=== PATIENT | female | born 1935 | race Caucasian/White ===

== ENCOUNTER 2017-02-14 19:32 | Inpatient (IN) | payer OTHER ==
[~2017-02-14] VITALS: Ht 152.4 cm; Wt 105.2 kg
[~2017-02-14 19:32] MED LIST: A/B OTIC15 ML; ADV100/50 IH; ADV250/50; ADV250/50 INH; AMLODIPINE BESY10 M1 PO; AMLODIPINE BESY10 MG PO; ASPIR-LOW81 M1 PO; CEFDINIR300 M1 PO; CIPRO250 MG PO; CLOPIDOGREL75 MG; COLACE100 MG PO; COZ25 PO; COZAAR25 MG PO; DULCOLAX10 MG RC; DUREZOL 5 ML5 ML OP; ELA10 PO; FUROSEMIDE20 MG PO; GLIPIZIDE PO; GLIPIZIDE5 MG PO; GLU5XL PO; GUAFENESIN400 MG PO; IBUPROFEN400 MG PO; IPRATROPIUM BROM3 M2 HHN; KLONOPIN2 M1 PO; LAC PO; LEVOFLOXACIN500 M1 PO; LEXAPRO20 MG PO; LINZESS290 MCG PO; LIPI20 PO; LOPRESSOR50 MG PO; LORAZEPAM0.5 MG PO; LOSARTAN POTASS1 TA6 PO; LOSARTAN POTASS25 M1 PO; LOSARTAN POTASS50 MG PO; MAGNESIUM OXID400 MG PO; MEDDP PO; METOPROLOL SUC100 M2 PO; METOPROLOL SUCC25 M1 PO; METP PO; MONTELUKAST SOD10 M1 PO; NORCO1 TA2 PO; OMEPRAZOLE DR20 M1 PO; PHECLUD PO; PREDNISONE50 MG PO; PROAIR HFA0.09 MG/A1 INH; PROAIR RES117 MCG/Ac IH; PROMETHAZINE V118 M2 PO; SENOKOT NATURA8.6 M1 PO; SIMVASTATIN40 M1 PO; SINGULAIR10 MG PO; TRE400 PO; VERAPAMIL HCL180 M1 PO; ZOL100 PO; ZOLOFT50 MG PO; [UNRECOGNIZED DRUG - CODE] PO; [UNRECOGNIZED DRUG - OTHER]; [UNRECOGNIZED DRUG - OTHER]; [UNRECOGNIZED DRUG - OTHER] PO; nebulizer
[2017-02-14] MEDS ORDERED: GOOD SENSE OMEP20 MG PO (20:17)
[2017-02-14] MEDS ORDERED: TOPROL XL25 MG PO (20:18)
[2017-02-14] MEDS ORDERED: ASPIR 8181 MG PO (20:18)
[2017-02-14] MEDS ORDERED: CLONAZEPAM1 MG PO (20:18)
[2017-02-14] MEDS ORDERED: FML OU (20:20)
[2017-02-14] MEDS ORDERED: SYSTANE GEL EYE10 ML OP (20:20)
[2017-02-14] MEDS ORDERED: MONTELUKAST SOD10 M1 PO (20:20)
[2017-02-14] MEDS ORDERED: REFRESH OPTIVE10 ML OP (20:21)
[2017-02-14 20:37] LABS: BASOPHIL % 0.4 % (0-2); PLATELET COUNT 269 x10^3mcL (130-400)
[2017-02-14 20:38] LABS: RED CELL DISTRIBUTION WIDTH 16.4 % (11.5-14.5)
[2017-02-14 20:46] LABS: CALCIUM 8.3 mg/dL (8.5-10.1); CARBON DIOXIDE 26.7 mmol/L (21-32); CHLORIDE SERUM 104 mmol/L (98-107); CREATININE SERUM 0.9 mg/dL (0.6-1.0); GLUCOSE SERUM 103 mg/dL (74-106); SODIUM SERUM 138 mmol/L (136-145)
[2017-02-14 20:51] LABS: ALKALINE PHOSPHATASE 104 U/L (46-116); ALT/SGPT 84 U/L (14-59); AST/SGOT 66 U/L (15-37)
[2017-02-14 20:52] LABS: ALBUMIN 2.8 g/dL (3.4-5.0)
[2017-02-14 21:16] LABS: CK-MB < 0.5 ng/mL (0-3.6); CREATINE KINASE 41 U/L (26-192)
[2017-02-14 21:31] LABS: CHOLESTEROL/HDL RATIO 3.6; MAGNESIUM 1.9 mg/dL (1.8-2.4)
[2017-02-14 21:46] LABS: T3 TOTAL 0.96 ng/mL
[2017-02-14 22:05] LABS: FREE T4 0.88 ng/dL (0.76-1.46); FREE THYROXINE INDEX 2.6 ug/dL (1.4-4.5); T4(THYROXINE) 7.7 ug/dL (4.7-13.3)
[2017-02-14 22:35] VITALS: BP 135/53
[2017-02-15] VITALS (7 sets, daily range): BP systolic 147–176; BP diastolic 72–84
[2017-02-15 01:56] LABS: microscopic required? NO
[2017-02-15 02:35] LABS: UA SPECIFIC GRAVITY 1.015 (1.005-1.035); urine erythrocyte NEGATIVE (NEGATIVE)
[2017-02-15 08:07] LABS: CALCIUM 8.1 mg/dL (8.5-10.1); CARBON DIOXIDE 29.6 mmol/L (21-32); CHLORIDE SERUM 104 mmol/L (98-107); CREATININE SERUM 0.9 mg/dL (0.6-1.0); GLUCOSE SERUM 96 mg/dL (74-106); MAGNESIUM 1.9 mg/dL (1.8-2.4); PHOSPHOROUS 3.5 mg/dL (2.5-4.9); POTASSIUM SERUM 3.9 mmol/L (3.5-5.1); SODIUM SERUM 138 mmol/L (136-145)
[2017-02-16 06:17] VITALS: BP 161/68
[2017-02-16 06:19] LABS: BASOPHIL % 0.3 % (0-2); PLATELET COUNT 262 x10^3mcL (130-400)
[2017-02-16 06:31] LABS: CALCIUM 8.5 mg/dL (8.5-10.1); CARBON DIOXIDE 28.5 mmol/L (21-32); CHLORIDE SERUM 102 mmol/L (98-107); CREATININE SERUM 0.8 mg/dL (0.6-1.0); GLUCOSE SERUM 104 mg/dL (74-106); MAGNESIUM 1.9 mg/dL (1.8-2.4); PHOSPHOROUS 3.7 mg/dL (2.5-4.9); POTASSIUM SERUM 3.8 mmol/L (3.5-5.1); SODIUM SERUM 138 mmol/L (136-145)
[2017-02-16 06:45] LABS: RED CELL DISTRIBUTION WIDTH 16.1 % (11.5-14.5)
[2017-02-16 08:05] VITALS: BP 140/94
[2017-02-16 09:39] VITALS: BP 127/78
[2017-02-16] MEDS ORDERED: BACLOFEN20 MG PO (14:19)
[2017-02-16] MEDS ORDERED: ATORVASTATIN CA40 M1 PO (14:21)
[2017-02-16 14:52] VITALS: BP 139/76
[2017-02-16 16:54] VITALS: BP 139/76
[2017-02-16] MEDS ORDERED: ELA25 PO (16:57)
[2017-02-16 18:19] VITALS: BP 126/74
[2017-02-16] MEDS ORDERED: NOR10 PO (18:52)
== END 2017-02-16 19:09 | disposition home or self-care (01) | DRG 304 ==
LOC: ED 19:32 → DU 21:01
PROVIDERS: Emergency Medicine; ADMIT Family Medicine
DX: I16.0 Hypertensive urgency (principal); E43 Unspecified severe protein-calorie malnutrition; E66.2 Morbid (severe) obesity with alveolar hypoventilation; Z68.41 Body mass index [BMI] 40.0-44.9, adult; D68.69 Other thrombophilia; I42.9 Cardiomyopathy, unspecified; G24.5 Blepharospasm; E11.9 Type 2 diabetes mellitus without complications; E02 Subclinical iodine-deficiency hypothyroidism; D64.9 Anemia, unspecified; E78.5 Hyperlipidemia, unspecified; Z79.82 Long term (current) use of aspirin; Z85.72 Personal history of non-Hodgkin lymphomas; Z79.84 Long term (current) use of oral hypoglycemic drugs
CPT/HCPCS: 82962; 83880; 84439; J0360; J1885; J2060; Q0092

== ENCOUNTER 2018-10-25 12:30 | Inpatient (IN) | payer OTHER ==
[~2018-10-25] VITALS: Ht 152.4 cm; Wt 98.6 kg
[~2018-10-25 12:30] MED LIST changes: +ASPIR 8181 MG PO; +ATORVASTATIN CA40 M1 PO; +BACLOFEN20 MG PO; +CLONAZEPAM1 MG PO; +ELA25 PO; +FML OU; +GOOD SENSE OMEP20 MG PO; +NOR10 PO; +REFRESH OPTIVE10 ML OP; +SYSTANE GEL EYE10 ML OP; +TOPROL XL25 MG PO
[2018-10-25 12:38] VITALS: Ht 152.4 cm; Wt 98.6 kg
[2018-10-25 13:03] LABS: BASOPHIL % 0.3 % (0-2); PLATELET COUNT 210 x10^3mcL (130-400)
[2018-10-25 13:04] LABS: RED CELL DISTRIBUTION WIDTH 15.7 % (11.5-14.5)
[2018-10-25 13:21] LABS: CARBON DIOXIDE 27.8 mmol/L (21-32); CHLORIDE SERUM 98 mmol/L (98-107); CREATININE SERUM 1.1 mg/dL (0.6-1.0); GLUCOSE SERUM 101 mg/dL (74-106); POTASSIUM SERUM 3.4 mmol/L (3.5-5.1); SODIUM SERUM 134 mmol/L (136-145)
[2018-10-25 13:25] LABS: ALKALINE PHOSPHATASE 64 U/L (46-116); ALT/SGPT 32 U/L (14-59); AST/SGOT 34 U/L (15-37); BILIRUBIN TOTAL 0.6 mg/dL (0.20-1.00); MAGNESIUM 1.9 mg/dL (1.8-2.4); TOTAL PROTEIN, SERUM 7.3 g/dL (6.4-8.2)
[2018-10-25 13:31] LABS: ALBUMIN 3.2 g/dL (3.4-5.0)
[2018-10-25 14:31] LABS: microscopic required? YES; urine erythrocyte NEGATIVE (NEGATIVE)
[2018-10-25] MEDS ORDERED: ELIQUIS2.5 MG PO ×2 (16:09→19:52)
[2018-10-25] MEDS ORDERED: CITALOPRAM HYDR20 M1 PO (16:10)
[2018-10-25] MEDS ORDERED: TRAZODONE50 M1 PO ×2 (16:11→19:53)
[2018-10-25] MEDS ORDERED: RANEXA500 M2 PO ×2 (16:11→19:52)
[2018-10-25] MEDS ORDERED: METOPROLOL SUCC50 M2 PO ×2 (16:12→19:53)
[2018-10-25] MEDS ORDERED: PAXIL10 MG PO ×2 (16:12→19:53)
[2018-10-25 19:30] VITALS: BP 121/68
[2018-10-25] MEDS ORDERED: ADV250/50 INH (19:52)
[2018-10-25] MEDS ORDERED: LIPITOR40 MG PO (19:52)
[2018-10-25] MEDS ORDERED: [UNRECOGNIZED DRUG - REMARK] PO (19:53)
[2018-10-26 05:28] VITALS: BP 124/81
[2018-10-26 06:24] LABS: CALCIUM 7.5 mg/dL (8.5-10.1); CARBON DIOXIDE 27.8 mmol/L (21-32); CHLORIDE SERUM 103 mmol/L (98-107); GLUCOSE SERUM 93 mg/dL (74-106); POTASSIUM SERUM 4.4 mmol/L (3.5-5.1); SODIUM SERUM 137 mmol/L (136-145)
[2018-10-26 08:10] LABS: BASOPHIL % 0.5 % (0-2); PLATELET COUNT 185 x10^3mcL (130-400)
[2018-10-26 08:11] LABS: RED CELL DISTRIBUTION WIDTH 16.3 % (11.5-14.5)
[2018-10-26 08:23] VITALS: BP 106/59
[2018-10-26] MEDS ORDERED: AZITHROMYCIN1 GM PO (08:38)
[2018-10-26] MEDS ORDERED: TAM75 PO (08:38)
[2018-10-26 10:22] VITALS: BP 106/59
[2018-10-26 11:52] VITALS: BP 109/65
== END 2018-10-26 13:10 | disposition home or self-care (01) | DRG 195 ==
LOC: ED 12:30 → DU 17:47
PROVIDERS: Emergency Medicine; ADMIT Internal Medicine
DX: J09.X2 Influenza due to identified novel influenza A virus with other respiratory manifestations (principal); E11.9 Type 2 diabetes mellitus without complications; I10 Essential (primary) hypertension; J45.909 Unspecified asthma, uncomplicated; E78.5 Hyperlipidemia, unspecified; G47.30 Sleep apnea, unspecified; E66.9 Obesity, unspecified; Z71.3 Dietary counseling and surveillance; Z85.72 Personal history of non-Hodgkin lymphomas
CPT/HCPCS: 82962; 83880; 85378; 87804; J7030; J7620